=== PATIENT | male | born 1995 | race African-American/Black ===

== ENCOUNTER 2024-11-26 20:31 | Emergency (ER) | payer BC ==
[~2024-11-26] VITALS: Ht 177.8 cm; Wt 149.7 kg
--- NOTE | 2024-11-26 21:04 | ERN ---
ED Note History of Present Illness Stated Complaint: WORKERS COMP,HIGH BLOOD PRESSURE Chief Complaint: Hypertension Time Seen by MD: 20:37 Dictation: 29-YEAR-OLD MALE COMING IN TODAY FROM LOCAL CENTER WITH COMPLAINTS OF HAVING ELEVATED BLOOD PRESSURE WITH A GENERALIZED HEADACHE ONSET WAS 30 MINUTES PRIOR TO ARRIVAL. HE STATES HE HAD HAD TO HELP RESTRAIN A PATIENT AND WAS BITTEN. WHEN THEY CHECKED HIS BLOOD PRESSURE IT WAS NOTED TO BE GREATER THAN 180 SYSTOLIC. STATES HIS HEADACHE IS GENERALIZED, STATES HE DOES NOT HAVE A HISTORY Allergies: Coded Allergies: No Known Allergies (Unverified Allergy, Unknown, 11/26/24) Past Medical History Past Medical History: Asthma, Migraines Surgical History: None RN Note Reviewed/Agreed w/PFSH: Yes Review of System Dictation CONSTITUTIONAL: NEGATIVE EXCEPT FOR HPI HEAD/FACE: NEGATIVE EXCEPT FOR HPI EENT: NEGATIVE EXCEPT FOR HPI RESPIRATORY: NEGATIVE EXCEPT FOR HPI GASTROINTESTINAL/ABDOMINAL: NEGATIVE EXCEPT FOR HPI GENITOURINARY: NEGATIVE EXCEPT FOR HPI MUSCULOSKELETAL: NEGATIVE EXCEPT FOR HPI INTEGUMENTARY: NEGATIVE EXCEPT FOR HPI NEUROLOGICAL/PSYCH: NEGATIVE EXCEPT FOR HPI GENERALIZED HEADACHE HEMATOLOGIC/LYMPHATIC: NEGATIVE EXCEPT FOR HPI ALL SYSTEMS NEGATIVE, EXCEPT NOTED ABOVE. 13 POINT REVIEW OF SYSTEMS ASSESSED AND ALL NEGATIVE EXCEPT FOR ABOVE. Initial Vital Sign VS Vital Signs Date Time Temp Pulse Resp B/P (MAP) Pulse Ox O2 Delivery O2 Flow Rate FiO2 11/26/24 21:00 97.5 92 20 175/100 97 Room Air 11/26/24 21:40 0 21 Physical Exam Dictation VITAL SIGNS REVIEWED GENERAL APPEARANCE: ALERT, ORIENTED X 3, [place] ACUTE DISTRESS, WELL DEVELOPED, NOURISHED. MORBID OBESITY HEAD AND FACE: NON-TRAUMATIC. EYES: PERRL, PINK CONJUNCTIVAS, EYELID NO TRAUMA, ANTERIOR CHAMBER WITH ARCUS SENILIS. EARS: PINNAS INTACT AND NO SIGNS OF TRAUMA OR ERYTHEMA EAR CANALS CLEAR AND NO DISCHARGE TM NO ERYTHEMA NOSE: NO DISCHARGE, NO BLEEDING. OROPHARYNX: MOUTH NORMAL, TONGUE PINK, PHARYNX CLEAR,NO ERYTHEMA, TONSILS NO EXUDATES, NO ABSCESSES NOTED, MUCOUS MEMBRANE MOIST NECK: SUPPLE, NON-TENDER, NO THYROMEGALY, NO MASSES, NO JVD, NO BRUITS BREAST:DEFERRED CHEST:NO TENDERNESS, NO CREPITUS, NO PARADOXICAL MOVEMENT, NO RETRACTIONS LUNGS:CLEAR, WELL-VENTILATED, SYMMETRIC, NO RALES, NO WHEEZING, NO RHONCHI, NO STRIDOR, GOOD BREATH SOUNDS BILATERALLY HEART: REGULAR RATE, REGULAR RHYTHM, NO MURMUR, NO GALLOPS VASCULAR: NO PERIPHERAL EDEMA, ABDOMEN: SOFT, POSITIVE BOWEL SOUNDS, NONDISTENDED, NO GUARDING, NONTENDER, NO REBOUND, NO MASSES NO HEPATOMEGALY, NO SPLENOMEGALY, NO BYRD'S SIGN, NO HERNIAS. RECTAL: DEFERRED GENITAL: DEFERRED NEUROLOGICAL: NORMAL SPEECH, MOTOR FUNCTION INTACT, SENSORY FUNCTION INTACT MUSCULOSKELETAL: NECK NONTENDER, FULL RANGE OF MOTION, BACK NONTENDER, FULL RANGE OF MOTION, EXTREMITIES: NONTENDER, FULL RANGE OF MOTION SKIN: COLOR PINK, DRY, NO TURGOR, NO RASH, NO LACERATIONS, NO ABRASIONS, NO CONTUSIONS. LYMPHATIC: DEFERRED Results (Laboratory/Radiology) Laboratory/Radiology Laboratory Tests Test 11/26/24 21:15 White Blood Count 11.2 K/uL (4.8-10.8) H Red Blood Count 4.90 MIL/uL (4.50-6.20) Hemoglobin 13.5 g/dL (14.0-18.0) L Hematocrit 43.2 % (42-54) Mean Corpuscular Volume 88.2 fL (79-99) Mean Corpuscular Hemoglobin 27.6 pg (27.0-33.0) Mean Corpuscular Hemoglobin Concent 31.3 g/dL (32.0-36.0) L Red Cell Distribution Width 14.2 % (11.0-15.5) Platelet Count 275 K/uL (130-400) Mean Platelet Volume 11.1 fL (7.5-10.5) H Immature Granulocyte % (Auto) 0.4 % (0-1) Neutrophils (%) (Auto) 65.0 % (40.0-77.0) Lymphocytes (%) (Auto) 28.6 % (21.0-51.0) Monocytes (%) (Auto) 4.9 % (3.0-13.0) Eosinophils (%) (Auto) 0.7 % (0.0-8.0) Basophils (%) (Auto) 0.4 % (0.0-5.0) Neutrophils # (Auto) 7.3 K/uL (1.8-7.7) Lymphocytes # (Auto) 3.2 K/uL (1.0-4.8) Monocytes # (Auto) 0.6 K/uL (0.1-1.0) Eosinophils # (Auto) 0.08 K/uL (0.00-0.70) Basophils # (Auto) 0.04 K/uL (0.00-0.20) Absolute Immature Granulocyte (auto 0.04 K/uL (0-1) Nucleated Red Blood Cells 0.0 % (0.0-0.19) Sodium Level 140 mmol/L (136-145) Potassium Level 3.6 mmol/L (3.5-5.1) Chloride Level 106 mmol/L (101-111) Carbon Dioxide Level 26 mmol/L (21-32) Blood Urea Nitrogen 14 mg/dL (7-18) Creatinine 1.1 mg/dL (0.5-1.3) Glomerular Filtration Rate Calc 93 mL/min (>90) Random Glucose 104 mg/dL (70-105) Total Calcium 9.2 mg/dL (8.5-10.1) Magnesium Level 2.00 mg/dL (1.80-2.40) Troponin I High Sensitivity 65 ng/L (4-75) B-Type Natriuretic Peptide < 5 pg/mL (0-100) Labs Reviewed?: Yes EKG Comment: EKG SINUS RHYTHM/HEART RATE 75/AXIS NORMAL/NO ECTOPY ED Course ED Course Orders Procedure Category Date Status Time Cbc With Differential LAB 11/26/24 Complete 21:02 B-Type Natriuretic LAB 11/26/24 Complete Peptide 21:02 Chest 1vw RAD 11/26/24 Resulted 21:02 12 Lead Ekg Tracing- EKG 11/26/24 Complete Technical 21:02 Magnesium LAB 11/26/24 Complete 21:02 Troponin I High LAB 11/26/24 Complete Sensitivity 21:02 Basic Metabolic Panel LAB 11/26/24 Complete 21:02 Clonidine Hcl 0.1 Mg PHA 11/26/24 Complete Tablet (Catapres 0. 21:30 Acetaminophen 500mg PHA 11/26/24 Complete Tab (Tylenol 500mg T 21:30 Current Medications Medications (Trade) Dose Ordered Sig/Yari Route PRN Reason Start Time Stop Time Status Last Admin Dose Admin Acetaminophen (TYLenol 500MG TAB) 1,000 mg ONCE ONCE PO 11/26/24 21:30 11/26/24 21:31 DC 11/26/24 21:29 Clonidine HCl (CATApres 0.1 mg TAB) 0.1 mg ONCE ONCE PO 11/26/24 21:30 11/26/24 21:31 DC 11/26/24 21:31 Vital Signs Date Time Temp Pulse Resp B/P (MAP) Pulse Ox O2 Delivery O2 Flow Rate FiO2 11/26/24 21:40 98.2 88 18 167/85 99 Room Air* 0 21 11/26/24 21:31 85 182/78 11/26/24 21:00 97.5 92 20 175/100 97 Room Air 2215/REPEAT BLOOD PRESSURE 167 SYSTOLIC. WE WILL DISCHARGE PATIENT HOME WITH CLONIDINE 0.1 B.I.D. GIVEN A LIST OF LOCAL DOCTORS. PATIENT WAS STRONGLY ADVISED TO BE COMPLIANT WITH ANTIHYPERTENSIVE MEDICATIONS AND FIND A PRIMARY CARE DOCTOR HEART Score Response (Comments) Value History: Low suspicion (0) 0 EKG: Normal 0 Age: < 45yrs (0) 0 Risk Factors: 1-2 risk factors (+1) 1 Initial Troponin: Normal limit (0) 0 Total 1 Medical Decision Making MDM MEDICAL DISCHARGE MAKING WE WILL BASED UPON EKG AND BASIC LABS FOR HYPERTENSION. LABS UNREMARKABLE, EKG UNREMARKABLE, TROPONIN NEGATIVE. SYSTOLIC BP 167 AFTER TREATMENT DISCHARGED HOME WITH HYPERTENSIVE GUIDELINES AND CLONIDINE 0.1 P.O. B.I.D. DX & DISP Disposition: Discharge Departure Impression: Primary Impression: Uncontrolled hypertension Additional Impression: Obesity Condition: Stable Scripts Clonidine HCl (Clonidine HCl) 0.2 Mg Tablet 1 TAB PO BID for 30 Days, #60 TAB 0 Refills Prov: NORBERTO WALDRON Pat [employer] CL[employer] 11/26/24 Additional Instructions: FOLLOW-UP WITH PRIMARY CARE PROVIDER IN 1 TO 2 DAYS. TAKE MEDICATIONS DIRECTED HERE IN THE EMERGENCY ROOM. OKAY TO CONTINUE HOME MEDICATIONS UNLESS OTHERWISE DISCUSSED DURING YOUR VISIT IN THE EMERGENCY ROOM TODAY. RETURN TO YOUR NEAREST EMERGENCY ROOM IF SYMPTOMS WORSEN OR IF THERE IS NO IMPROVEMENT. CALL 911 IF YOU NEED IMMEDIATE ASSISTANCE. TAKE TYLENOL OR MOTRIN OVER-THE-C OUNTER NEEDED AND IF NO CONTRAINDICATIONS ARE PRESENT. INCREASE ORAL HYDRATION. A WOUND CULTURE OR URINE CULTURE WAS ORDERED HERE IN THE EMERGENCY ROOM DEPARTMENT PLEASE FOLLOW-UP WITH PRIMARY CARE PROVIDER AND ADVISE THEM TO GET REPEAT PORTS FROM OUR FACILITY. IF YOU HAD ANY TATIANNA WRAP/SPLINTS THAT WERE APPLIED HERE, PLEASE DO NOT REMOVE THEM UNTIL YOU SEE YOUR PRIMARY CARE OR SPECIALTY. TAKE CLONIDINE DIRECTED FOR YOUR BLOOD PRESSURE. FOLLOW UP WITH ONE OF THE DOCTORS ON THE LIST PROVIDED IN THE NEXT 2-3 DAYS FOR MANAGEMENT OF YOUR BLOOD PRESSURE. PLZ BE AWARE THAT UNCONTROLLED HYPERTENSION CAN CAUSE STROKE, HEART ATTACK, KIDNEY DISEASE, Time of Disposition: 22:16 I have reviewed the case, and I agree with, Diagnosis and Plan NORBERTO WALDRON NP November 26, 2024 21:04
--- NOTE | 2024-11-26 21:13 | EKG ---
[facility] Test Date: 2024-11-26 Test Time: 21:10:46 Pat Name: CHRISTINA VILLAREAL Department: ED Room: Gender: M Office Clin Asst: [facility] : 1995 Requested By: NORBERTO WALDRON Order Number: [id number] Reading MD: Marky Reed Measurements Intervals Jackson Rate: 75 P: 226 ME: 191 QRS: -14 QRSD: 88 T: -74 QT: 359 QTc: 400 Interpretive Statements Sinus rhythm No previous ECG available for comparison Electronically Signed On 11-27-2024 18:57:24 CDT by Marky Reed Please click the below link to view image of tracing.
[2024-11-26 21:23] LABS: BASOPHILS # (AUTO) 0.04 K/uL (0.00-0.20); BASOPHILS % (AUTO) 0.4 % (0.0-5.0); EOSINOPHILS # (AUTO) 0.08 K/uL (0.00-0.70); EOSINOPHILS % (AUTO) 0.7 % (0.0-8.0); HEMATOCRIT 43.2 % (42-54); IMMATURE GRANULOCYTE ABSOLUTE 0.04 K/uL (0-1); LYMPHOCYTES # (AUTO) 3.2 K/uL (1.0-4.8); LYMPHOCYTES % (AUTO) 28.6 % (21.0-51.0); MEAN CORPUSCULAR HEMOGLOBIN 27.6 pg (27.0-33.0); MEAN CORPUSCULAR HGB CONC 31.3 g/dL (32.0-36.0); MEAN CORPUSCULAR VOLUME 88.2 fL (79-99); MONOCYTES # (AUTO) 0.6 K/uL (0.1-1.0); MONOCYTES % (AUTO) 4.9 % (3.0-13.0); NEUTROPHILS # (AUTO) 7.3 K/uL (1.8-7.7); PLATELET COUNT (AUTO) 275 K/uL (130-400); RED CELL DISTRIBUTION WIDTH 14.2 % (11.0-15.5); WHITE BLOOD COUNT (AUTO) 11.2 K/uL (4.8-10.8)
[2024-11-26] MEDS: acetaMINOPHEN 500 MG TABLET PO ONE (21:29)
[2024-11-26] MEDS: cloNIDine HCL 0.1 MG TABLET PO ONE (21:31)
[2024-11-26 21:34] LABS: CREATININE 1.1 mg/dL (0.5-1.3); POTASSIUM 3.6 mmol/L (3.5-5.1)
--- NOTE | 2024-11-26 21:41 | HMCIMG ---
PORTABLE CHEST RADIOGRAPH INDICATION: CHEST PAIN COMPARISON: None FINDINGS: Heart size is normal. The pulmonary vascularity and leidy appear normal. No abnormal pulmonary parenchymal opacity or consolidation identified. No significant pleural effusion noted. No pneumothorax detected. IMPRESSION: No radiographic evidence for any acute cardiopulmonary process.
[2024-11-26 21:44] LABS: B-TYPE NATRIURETIC PEPTIDE < 5 pg/mL (0-100)
[2024-11-26] MEDS ORDERED: CLON0.2T PO (22:17)
[2024-11-26 22:24] VITALS: BP 145/82; PULSE 85; RESP 18; TEMP 98.2; O2SAT 97
== END 2024-11-26 22:30 | disposition home or self-care (01) ==
LOC: EDH 20:31
DX: I10 Essential (primary) hypertension (principal); E66.9 Obesity, unspecified; Z68.42 Body mass index [BMI] 45.0-49.9, adult; J45.909 Unspecified asthma, uncomplicated; G43.909 Migraine, unspecified, not intractable, without status migrainosus
CPT/HCPCS: 36415; 71045; 80048; 83735; 83880; 84484; 85025; 93005; 99284